=== PATIENT | male | born 1985 | race Caucasian/White ===

== ENCOUNTER 2017-11-14 23:48 | Emergency (ER) | payer SELFPAY ==
[2017-11-15 00:11] VITALS: RESP 18
[2017-11-15] MEDS ORDERED: Tdap Vaccine 0.5 ml Vial (10-64 yrs) IM ONE ×2 (00:47→05:19)
[2017-11-15] MEDS ORDERED: Acetaminophen 650mg/20.3ml solution UD PO STA (00:47)
--- NOTE | 2017-11-15 02:13 | ED PDOC ---
HPI: Trauma/Fall - HPI Time Seen by Provider: 11/15/17 00:15 Chief Complaint (Nursing): Trauma Chief Complaint (Provider): Fall Type Injury History Per: Patient History/Exam Limitations: no limitations Injury Occurred (Timing): Just Before Arrival Location Of Injury: Anterior: Face (Nose) Associated Symptoms: denies: LOC Additional Complaint(s): 32 year old male presents to ED with complaints of a nasal injury s/p fall after tripping over a metal divider on the floor. Reports mild headache and nasal pain. Confirms a resolved episode of epistaxis. (-) LOC, dizziness, vomiting, nausea, or visual changes. 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 Tetanus status unknown. PCP: [facility] Language line used to obtain history: Jamshid Cano #[id number] Past Medical History Reviewed: Historical Data, Nursing Documentation, Vital Signs Vital Signs: Last Vital Signs Temp 98.0 F 11/15/17 03:13 Pulse 87 11/15/17 03:13 Resp 18 11/15/17 03:13 BP 129/89 11/15/17 03:13 Pulse Ox 97 11/15/17 03:35 - Medical History PMH: No Chronic Diseases - Surgical History Other surgeries: right knee surgery - Family History Family History: States: Unknown Family Hx - Social History Current smoker - smoking cessation education provided: No Ex-Smoker (has not smoked in the last 12 months): No Alcohol: None Drugs: Denies - Home Medications Home Medications: Ambulatory Orders Medication Instructions Recorded Bacitracin Ointment [Bacitracin] 1 gm TOP BID #1 tube 11/15/17 - Allergies Allergies/Adverse Reactions: Allergies Allergy/AdvReac Type Severity Reaction Status Date / Time No Known Allergies Allergy Verified 11/15/17 00:02 Review of Systems ROS Statement: Except As Marked, All Systems Reviewed And Found Negative Eyes: Negative for: Vision Change Gastrointestinal: Negative for: Nausea, Vomiting Musculoskeletal: Positive for: Other (nasal pain) Neurological: Positive for: Headache (mild). Negative for: Dizziness, Other ((- ) LOC) Physical Exam - Reviewed Nursing Documentation Reviewed: Yes Vital Signs Reviewed: Yes - Physical Exam Appears: Positive for: Well, Non-toxic, No Acute Distress Head Exam: Positive for: NORMOCEPHALIC Skin: Positive for: Normal Color, Warm, Dry Eye Exam: Positive for: EOMI, PERRL. Negative for: Periorbital swelling, Periorbital tenderness ENT: Positive for: Pharynx Is (clear, uvula midline), Other (1cm irregular c- shaped laceration to the nasal bridge with attached skin flap; mild swelling and tenderness to nasal bridge. Bilateral nares patent - no dried blood. No jaw tenderness. Full ROM to mandible. Dentition intact and nontender) Neck: Positive for: Painless ROM, Supple Cardiovascular/Chest: Positive for: Regular Rate, Rhythm Respiratory: Positive for: Normal Breath Sounds. Negative for: Decreased Breath Sounds, Accessory Muscle Use, Respiratory Distress Gastrointestinal/Abdominal: Positive for: Soft. Negative for: Tenderness, Distended, Guarding Extremity: Positive for: Normal ROM. Negative for: Deformity Neurologic/Psych: Positive for: Alert, handle sander operator II-XII (grossly intact), Oriented (x3 ), Cerebellar Tests (intact), Gait (steady). Negative for: Motor/Sensory Deficits, Aphasia, Facial Droop - ECG O2 Sat by Pulse Oximetry: 97 (RA) Pulse Ox Interpretation: Normal Medical Decision Making Medical Decision Makin Initial impression: nasal injury and laceration status post fall Initial plan: * Adacel 0.5mL IM * Acetaminophen 650mg PO * Wound closure * XR NASAL BONES * Re-eval 0200 Patient requesting more time to decide whether he is agreeable to stitching. ED MONIKA Givens and ED MD Martinez both have had extensive conversations with patient using field liability generalist stating stitches are recommended for wound closure. 0230 XR reviewed, radiology report follows EXAM: XR Nasal Bones, 3 or More Views CLINICAL HISTORY: 32 years old, male; Injury or trauma; Fall; Initial encounter; Blunt trauma ( contusions or hematomas); Nose; Additional info: S/P fall TECHNIQUE: Frontal and lateral views of the nasal bones. COMPARISON: No relevant prior studies available. FINDINGS: Bones/joints: No displaced fracture. Sinuses: Unremarkable. No air-fluid levels. Soft tissues: Unremarkable. IMPRESSION: 1. No displaced fracture. Thank you for allowing us to participate in the care of your patient. Dictated and Authenticated by: Luis Churchill MD 11/15/2017 2:31 AM Eastern Time ([place] & [place]) 0257 After lengthy conversation with patient, he refuses stitches in the ED. Risks and benefits of wound closure explained. Patient opts to let wound heal naturally. Patient was educated on wound care. On exam, patient remains AAOx3, in no acute distress. Lungs clear to auscultation, cardiac RRR, abdomen soft, non-tender, repeat neuro exam shows no focal findings. Lab/Diagnostic results d/w the patient in great detail. Diagnosis of nasal contusion an laceration s/p fall d/w the patient. Based on history, exam and diagnostic results, plan will be for outpatient follow up. Patient instructed to follow-up with pmd / referral provided / the clinic in 1- 2 days without fail. Return to the emergency room at any time for any new or worsening symptoms. Patient states he fully agrees with and understands discharge instructions. States that he agrees with the plan and disposition. Verbalized and repeated discharge instructions and plan. I have given the patient opportunity to ask any additional questions. Scribe Attestation: Documented by Yasmin Jonas acting as a scribe for Claudia Givens PA-C., MD Scribe Attestation: All medical record entries made by the Scribe were at my direction and personally dictated by me. I have reviewed the chart and agree that the record accurately reflects my personal performance of the history, physical exam, medical decision making, and the department course for this patient. I have also personally directed, reviewed, and agree with the discharge instructions and disposition. Disposition - Clinical Impression Clinical Impression: Nasal contusion, Nasal laceration, Fall - Patient ED Disposition Is Patient to be Admitted: No Counseled Patient/Family Regarding: Studies Performed, Diagnosis, Need For Followup, Rx Given - Disposition Disposition: Routine/Home Disposition Time: 02:59 Condition: STABLE Prescriptions: Bacitracin Ointment [Bacitracin] 1 gm TOP BID #1 tube Instructions: Wound Care, Contusion (DC) Forms: [email or web address] (Gibraltarian) Print Language: SURINAMESE - POA Present On Arrival: Falls Or Trauma
--- NOTE | 2017-11-15 02:32 | RAD ---
EXAM: XR Nasal Bones, 3 or More Views CLINICAL HISTORY: 32 years old, male; Injury or trauma; Fall; Initial encounter; Blunt trauma (contusions or hematomas); Nose; Additional info: S/P fall TECHNIQUE: Frontal and lateral views of the nasal bones. COMPARISON: No relevant prior studies available. FINDINGS: Bones/joints: No displaced fracture. Sinuses: Unremarkable. No air-fluid levels. Soft tissues: Unremarkable. IMPRESSION: 1. No displaced fracture.
[2017-11-15] MEDS ORDERED: Bacitracin 500 Units/gm Oint Foilpak UD TOP STA (02:59)
[2017-11-15 03:15] VITALS: BP 129/89; PULSE 87; TEMP 98
[2017-11-15 03:29] VITALS: O2SAT 97
== END 2017-11-15 03:16 | disposition home or self-care (01) ==
LOC: H.ER 23:48
DX: S01.21XA Laceration without foreign body of nose, initial encounter (principal); S00.33XA Contusion of nose, initial encounter; W19.XXXA Unspecified fall, initial encounter; Y92.89 Other specified places as the place of occurrence of the external cause

== ENCOUNTER 2018-06-04 10:31 | Emergency (ER) | payer OTHER ==
[2018-06-04 10:37] VITALS: TEMP 97
[2018-06-04 10:38] VITALS: BMI 26.7
--- NOTE | 2018-06-04 10:49 | ED PDOC ---
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 She states blood was more concentrated yesterday but today he is noticing less blood. He denies abdominal pain or back pain. Patient states he is currently not sexually active and denies concern for STD. Patient denies history of similar symptoms. PMD: none Past Medical History Reviewed: Historical Data, Nursing Documentation, Vital Signs Vital Signs: Last Vital Signs Temp 97 F L 06/04/18 10:36 Pulse 86 06/04/18 10:36 Resp 18 06/04/18 10:36 BP 123/84 06/04/18 10:36 Pulse Ox 99 06/04/18 10:36 - Medical History PMH: No Chronic Diseases - Surgical History Surgical History: No Surg Hx - Family History Family History: States: No Known Family Hx - Living Arrangements Living Arrangements: With Family - Social History Current smoker - smoking cessation education provided: No Alcohol: None Drugs: Denies - Home Medications Home Medications: Ambulatory Orders Medication Instructions Recorded Bacitracin Ointment [Bacitracin] 1 gm TOP BID #1 tube 11/15/17 Ciprofloxacin [Cipro] 500 mg PO BID #14 tab 06/04/18 Ibuprofen [Motrin] 600 mg PO Q6 PRN #20 tab 06/04/18 - Allergies Allergies/Adverse Reactions: Allergies Allergy/AdvReac Type Severity Reaction Status Date / Time No Known Allergies Allergy Verified 11/15/17 00:02 Review of Systems ROS Statement: Except As Marked, All Systems Reviewed And Found Negative Constitutional: Negative for: Fever, Chills Cardiovascular: Negative for: Chest Pain Respiratory: Negative for: Cough Gastrointestinal: Negative for: Nausea, Vomiting, Abdominal Pain, Diarrhea, Constipation Genitourinary Male: Positive for: Dysuria, Hematuria. Negative for: Frequency, Incontinence, Penile Discharge, Scrotal Pain, Penile Pain Physical Exam - Reviewed Nursing Documentation Reviewed: Yes Vital Signs Reviewed: Yes - Physical Exam Appears: Positive for: Well, Non-toxic, No Acute Distress Skin: Positive for: Normal Color. Negative for: Rash Eye Exam: Positive for: Normal appearance Cardiovascular/Chest: Positive for: Regular Rate, Rhythm Respiratory: Positive for: Normal Breath Sounds. Negative for: Wheezing, Respiratory Distress Gastrointestinal/Abdominal: Positive for: Soft. Negative for: Tenderness, Distended, Guarding, Rebound Extremity: Positive for: Normal ROM Neurologic/Psych: Positive for: Alert, Oriented - Laboratory Results Result Diagrams: 06/04/18 11:45 06/04/18 11:45 Urine dip results: Positive for: Blood (large). Negative for: Leukocyte Esterase, Nitrate, Ketones, Glucose, Bilirubin, Protein - ECG O2 Sat by Pulse Oximetry: 99 Pulse Ox Interpretation: Normal - Other Rad Abd and pelvis CT without contrast X-Ray: Read By Radiologist X-Ray Interpretation: see below Medical Decision Making Medical Decision Makin32 y/o male with hematuria. Plan: CBC CMP PT/PTT UA and culture CT abd and pelvis without contrast Pain meds declined CT: FINDINGS: LOWER THORAX: Unremarkable. LIVER: Unremarkable. No gross lesion or ductal dilatation. GALLBLADDER AND BILE DUCTS: Unremarkable. PANCREAS: Unremarkable. No gross lesion or ductal dilatation. SPLEEN: Unremarkable. ADRENALS: Unremarkable. No mass. KIDNEYS AND URETERS: Pathology at this time. A punctate intrarenal calculus identified at the upper midpole left kidney with no additional radiodense urolithiasis identified bilaterally or in the urinary bladder. No obstructive uropathy bilaterally. No significant perinephric reactive changes bilaterally. No visible renal parenchymal VASCULATURE: Unremarkable. No aortic aneurysm. No aortic atherosclerotic calcification or mural plaque present. BOWEL: Limited retained fecal material scattered throughout the large bowel. No bowel obstruction. No perienteric or pericolic reactive changes grossly evident. APPENDIX: Unremarkable. Normal appendix. PERITONEUM: Unremarkable. No free fluid. No free air. LYMPH NODES: Unremarkable. No enlarged lymph nodes. BLADDER: Limited urinary bladder distension. Mural thickening difficult to completely exclude to some degree. Consider potential cystitis. REPRODUCTIVE: Unremarkable. BONES: No acute fracture. OTHER FINDINGS: None. IMPRESSION: 1. No obstructive uropathy bilaterally. Punctate intrarenal calculus upper midpole left kidney no additional radiodense urolithiasis identified bilaterally or in the urinary bladder. 2. Urinary bladder is incompletely distended limiting evaluation of the wall. No focal nodularity or mass grossly evident however is difficult to completely exclude an element of cystitis although this mural thickened appearance is likely a function of inadequate distension. Patient's is aware of all diagnostic testing results, all questions answered. Patient given prescription for Cipro and Motrin. He was advised to follow-up with urologist or clinic. Patient also aware he can return any time if acutely worse. Disposition - Clinical Impression Clinical Impression: Hemorrhagic cystitis - Patient ED Disposition Is Patient to be Admitted: No Counseled Patient/Family Regarding: Studies Performed, Diagnosis, Need For Followup, Rx Given - Disposition Referrals: Eugenia Hamilton MD [Medical Doctor] - [facility] [place] [Outside] Disposition: Routine/Home Disposition Time: 13:40 Condition: STABLE Additional Instructions: Take prescription meds as directed. Drink plenty of fluids. Follow-up with clinic or urologist in 2-3 days. Return any time if acutely worse. Prescriptions: Ciprofloxacin [Cipro] 500 mg PO BID #14 tab Ibuprofen [Motrin] 600 mg PO Q6 PRN #20 tab PRN Reason: Pain, Moderate (4-7) Instructions: Acute Cystitis (DC) Results - Lab Results Lab Results: 06/04/18 06/04/18 06/04/18 11:45 11:45 11:45 WBC RBC Hgb Hct MCV MCH MCHC RDW Plt Count MPV Neut % (Auto) Lymph % (Auto) [place] % (Auto) Eos % (Auto) Baso % (Auto) Neut # (Auto) Lymph # (Auto) [place] # (Auto) Eos # (Auto) Baso # (Auto) PT 13.1 INR 1.2 APTT 33.8 Sodium 141 Potassium 4.4 Chloride 104 Carbon Dioxide 29 Anion Gap 12 BUN 13 Creatinine 0.8 Est GFR ( Amer) > 60 Est GFR (Non-Af Amer) > 60 Random Glucose 104 Calcium 9.5 Total Bilirubin 0.6 AST 24 ALT 24 Alkaline Phosphatase 58 Total Protein 7.9 Albumin 4.4 Globulin 3.5 Albumin/Globulin Ratio 1.2 Urine Color Yellow Urine Clarity Cloudy Urine pH 7.0 Ur Specific Swiss 1.023 Urine Protein 30 Urine Glucose (UA) Neg Urine Ketones Negative Urine Blood Large Urine Nitrate Negative Urine Bilirubin Negative Urine Urobilinogen 4.0 Ur Leukocyte Esterase Neg 06/04/18 11:45 WBC 6.0 RBC 5.26 Hgb 15.2 Hct 45.1 MCV 85.7 MCH 28.9 MCHC 33.7 RDW 13.0 Plt Count 276 MPV 9.0 Neut % (Auto) 55.9 Lymph % (Auto) 29.1 [place] % (Auto) 12.3 H Eos % (Auto) 1.6 Baso % (Auto) 1.1 Neut # (Auto) 3.4 Lymph # (Auto) 1.8 [place] # (Auto) 0.7 Eos # (Auto) 0.1 Baso # (Auto) 0.1 PT INR APTT Sodium Potassium Chloride Carbon Dioxide Anion Gap BUN Creatinine Est GFR ( Amer) Est GFR (Non-Af Amer) Random Glucose Calcium Total Bilirubin AST ALT Alkaline Phosphatase Total Protein Albumin Globulin Albumin/Globulin Ratio Urine Color Urine Clarity Urine pH Ur Specific [place] Urine Protein Urine Glucose (UA) Urine Ketones Urine Blood Urine Nitrate Urine Bilirubin Urine Urobilinogen Ur Leukocyte Esterase
[2018-06-04 11:59] LABS: BASO # 0.1 K/uL (0.0-0.2); BASO % 1.1 % (0.0-2.0); EOS # 0.1 K/uL (0.0-0.7); EOS % 1.6 % (0.0-4.0); HEMOGLOBIN 15.2 g/dL (12.0-18.0); LYMPH # 1.8 K/uL (1.0-4.3); LYMPH % 29.1 % (20.0-40.0); MEAN CELL VOLUME 85.7 fl (80.0-94.0); MEAN CORPUSCULAR HEMOGLOBIN 28.9 pg (27.0-31.0); MEAN CORPUSCULAR HGB CONC 33.7 g/dL (33.0-37.0); MONO # 0.7 K/uL (0.0-0.8); MONO % 12.3 % (0.0-10.0); NEUT # 3.4 K/uL (1.8-7.0); NEUT % 55.9 % (50.0-75.0); NRBC % 0.1 % (0.0-0.0); RBC 5.26 Mil/uL (4.40-5.90)
[2018-06-04 12:03] LABS: URINE BILIRUBIN NEGATIVE (NEGATIVE); URINE BLOOD LARGE (NEGATIVE); URINE CLARITY CLOUDY (Clear); URINE COLOR YELLOW (YELLOW); URINE GLUCOSE (UA) NEG (Normal); URINE LEUKOCYTE ESTERASE NEG Leu/uL (Negative); URINE PROTEIN 30 mg/dL (NEGATIVE)
[2018-06-04 12:05] LABS: INR 1.2; PROTHROMBIN TIME 13.1 Seconds (9.8-13.1)
[2018-06-04 12:08] LABS: PARTIAL THROMBOPLASTIN TIME 33.8 Seconds (25.6-37.1)
[2018-06-04 12:10] LABS: ALB/GLOB RATIO 1.2 (1.0-2.1); ALBUMIN 4.4 g/dL (3.5-5.0); ALT/SGPT 24 U/L (21-72); AST/SGOT 24 U/L (17-59); BLOOD UREA NITROGEN 13 mg/dl (9-20); CALCIUM 9.5 mg/dL (8.4-10.2); GFR NON-AFRICAN AMERICAN > 60
--- NOTE | 2018-06-04 12:51 | CT ---
Date of service: 06/04/2018 PROCEDURE: CT Abdomen and Pelvis without intravenous contrast HISTORY: hematuria COMPARISON: None. TECHNIQUE: Helical CT of the abdomen and pelvis was performed without oral or intravenous contrast as per referring physician request. Coronal and sagittal reformats were generated. Contrast dose: None Radiation dose: Total exam DLP = 616.18 mGy-cm. This CT exam was performed using one or more of the following dose reduction techniques: Automated exposure control, adjustment of the mA and/or kV according to patient size, and/or use of iterative reconstruction technique. FINDINGS: LOWER THORAX: Unremarkable. LIVER: Unremarkable. No gross lesion or ductal dilatation. GALLBLADDER AND BILE DUCTS: Unremarkable. PANCREAS: Unremarkable. No gross lesion or ductal dilatation. SPLEEN: Unremarkable. ADRENALS: Unremarkable. No mass. KIDNEYS AND URETERS: Pathology at this time. A punctate intrarenal calculus identified at the upper midpole left kidney with no additional radiodense urolithiasis identified bilaterally or in the urinary bladder. No obstructive uropathy bilaterally. No significant perinephric reactive changes bilaterally. No visible renal parenchymal VASCULATURE: Unremarkable. No aortic aneurysm. No aortic atherosclerotic calcification or mural plaque present. BOWEL: Limited retained fecal material scattered throughout the large bowel. No bowel obstruction. No perienteric or pericolic reactive changes grossly evident. APPENDIX: Unremarkable. Normal appendix. PERITONEUM: Unremarkable. No free fluid. No free air. LYMPH NODES: Unremarkable. No enlarged lymph nodes. BLADDER: Limited urinary bladder distension. Mural thickening difficult to completely exclude to some degree. Consider potential cystitis. REPRODUCTIVE: Unremarkable. BONES: No acute fracture. OTHER FINDINGS: None. IMPRESSION: 1. No obstructive uropathy bilaterally. Punctate intrarenal calculus upper midpole left kidney no additional radiodense urolithiasis identified bilaterally or in the urinary bladder. 2. Urinary bladder is incompletely distended limiting evaluation of the wall. No focal nodularity or mass grossly evident however is difficult to completely exclude an element of cystitis although this mural thickened appearance is likely a function of inadequate distension.
[2018-06-04 13:50] VITALS: BP 125/81; PULSE 77; RESP 20; O2SAT 100
== END 2018-06-04 15:02 | disposition home or self-care (01) ==
LOC: H.ER 10:31
DX: N30.91 Cystitis, unspecified with hematuria (principal)

== ENCOUNTER 2018-07-07 11:18 | Emergency (ER) | payer OTHER ==
[2018-07-07 11:19] VITALS: BMI 26.7
[2018-07-07 11:32] VITALS: O2SAT 100
--- NOTE | 2018-07-07 11:35 | ED PDOC ---
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 Patient states he woke up this morning with dried blood to affected area. He complains of swelling and mild throbbing pain. Patient denies fever or chills. PMD: none Past Medical History Reviewed: Historical Data, Nursing Documentation, Vital Signs Vital Signs: Last Vital Signs Temp 98.5 F 07/07/18 11:30 Pulse 88 07/07/18 11:30 Resp 19 07/07/18 11:30 BP 112/72 07/07/18 11:30 Pulse Ox 100 07/07/18 11:30 - Medical History PMH: No Chronic Diseases - Surgical History Other surgeries: right knee surgery - Family History Family History: States: No Known Family Hx - Living Arrangements Living Arrangements: With Family - Social History Current smoker - smoking cessation education provided: No Alcohol: None Drugs: Denies - Home Medications Home Medications: Ambulatory Orders Medication Instructions Recorded Bacitracin Ointment [Bacitracin] 1 gm TOP BID #1 tube 11/15/17 Ciprofloxacin [Cipro] 500 mg PO BID #14 tab 06/04/18 Ibuprofen [Motrin] 600 mg PO Q6 PRN #20 tab 06/04/18 Amoxicillin/Clavulanate [Augmentin 1 tab PO BID #14 tab 07/07/18 875 MG-125 MG] Clindamycin [Cleocin] 300 mg PO QID #28 cap 07/07/18 Ibuprofen [Motrin Tab] 800 mg PO Q8 PRN #20 tab 07/07/18 - Allergies Allergies/Adverse Reactions: Allergies Allergy/AdvReac Type Severity Reaction Status Date / Time No Known Allergies Allergy Verified 11/15/17 00:02 Review of Systems ROS Statement: Except As Marked, All Systems Reviewed And Found Negative Constitutional: Negative for: Fever, Chills Musculoskeletal: Positive for: Other (draining cyst to lower back) Physical Exam - Reviewed Nursing Documentation Reviewed: Yes Vital Signs Reviewed: Yes - Physical Exam Appears: Positive for: Well, Non-toxic, No Acute Distress Skin: Positive for: Normal Color. Negative for: Rash Eye Exam: Positive for: Normal appearance Cardiovascular/Chest: Positive for: Regular Rate, Rhythm Respiratory: Positive for: Normal Breath Sounds. Negative for: Wheezing, Respiratory Distress Back: Positive for: Other (3 cm indurated abscess noted to gluteal cleft, mild tenderness to palpation, no central pointing, no active drainage). Negative for: L CVA Tenderness, R CVA Tenderness Extremity: Positive for: Normal ROM Neurologic/Psych: Positive for: Alert, Oriented - ECG O2 Sat by Pulse Oximetry: 100 Pulse Ox Interpretation: Normal Medical Decision Making Medical Decision Making: Impression: Pilonidal abscess Plan: Rx motrin, clindamycin and augmentin given. Advised warm compresses to affected area and sitz baths. Patient was referred to surgery for follow up. Disposition - Clinical Impression Clinical Impression: Pilonidal abscess - Patient ED Disposition Is Patient to be Admitted: No Counseled Patient/Family Regarding: Diagnosis, Need For Followup, Rx Given - Disposition Referrals: Star Luna MD [Staff Provider] - Disposition: Routine/Home Disposition Time: 12:44 Condition: STABLE Additional Instructions: Apply warm compresses to affected area and do sitz baths. Take meds as directed. Follow up with surgeon for any persistent symptoms. Prescriptions: Amoxicillin/Clavulanate [Augmentin 875 MG-125 MG] 1 tab PO BID #14 tab Clindamycin [Cleocin] 300 mg PO QID #28 cap Ibuprofen [Motrin Tab] 800 mg PO Q8 PRN #20 tab PRN Reason: Pain, Moderate (4-7) Instructions: Pilonidal Cyst Forms: [employer] (Kyrgyz)
[2018-07-07] MEDS ORDERED: Lidocaine 1% Inj (20ml) IJ STA (12:32)
[2018-07-07 13:43] VITALS: BP 110/67; PULSE 79; RESP 16; TEMP 98.3
== END 2018-07-07 13:22 | disposition home or self-care (01) ==
LOC: H.ER 11:18
DX: L05.01 Pilonidal cyst with abscess (principal)